=== PATIENT | female | born 1990 | race Two or more races ===

== ENCOUNTER → 2019-07-22 | Outpatient (CLI) | payer SELFPAY ==
--- NOTE | 2019-07-22 16:32 | RADIOLOGY REPORT (SQ) ---
EXAM DESCRIPTION: U/S OB 14+ TRNABD 1GES W/O DOP COMPLETED DATE/TIME: 07/22/2019 3:37 pm REASON FOR STUDY: Z34.83 ENCOUNTER FOR SUPRVSN OF NORMAL , THIRD TRIMESTER Z34.83 ENCOUNTE R FOR SUPRVSN OF NORMAL , THIRD TRIM COMPARISON: None. TECHNIQUE: Static and Dynamic grayscale imaging performed of gravid uterus using transabdominal appr oach. Additional selected color Doppler and spectral images recorded. All stored on PACS. LIMITATIONS: None. FINDINGS: FETUSES SEEN:1 EGA: 37 weeks 1 day Calculated using BPD,FL,HC,AC documented on images. No discrepancy with clinical dates. RAHUL: 08/11/2019 EFW: 3081 grams +/-456 g grams PERCENTILE: 42% DEJAN: 12.0 cm PLACENTA: Anterior. PRESENTATION: Cephalic. ANATOMY: HEART RATE: 136 beats per minute. FOUR CHAMBER HEART: Not visualized. THREE VESSEL CORD: Yes. CORD INSERTION: Not visualized. KIDNEYS AND BLADDER: Visualized. Appear normal. STOMACH: Visualized. Appears normal. SPINE: Not visualized. BRAIN AND LATERAL VENTRICLES: Lateral ventricles, cerebellum and cisterna magna are not seen. Normal brain as visualized. OTHER: No other significant finding. MATERNAL ADNEXA: Maternal ovaries not visualized. CERVICAL LENGTH: Not visualized. OTHER: Limited anatomy due to advanced gestational age. IMPRESSION: LIVING INTRAUTERINE . ESTIMATED GESTATIONAL AGE: 37 weeks 1 day NO VISUALIZED ANOMALIES. Trimester of : Third trimester - 28 weeks to delivery. TECHNICAL DOCUMENTATION: JOB ID: [id number] [employer]- All Rights Reserved Reading location - IP/workstation name: [email or web address]
== END ==
LOC: RAD 14:39
PROVIDERS: ATTEND Midwife
DX: Z34.83 Encounter for supervision of other normal pregnancy, third trimester (principal)
CPT/HCPCS: 76805

== ENCOUNTER → 2019-07-31 | Outpatient (CLI) | payer SELFPAY ==
--- NOTE | 2019-08-01 11:06 | RADIOLOGY REPORT (SQ) ---
EXAM DESCRIPTION: U/S OB 14+ TRNABD 1GES W/O DOP COMPLETED DATE/TIME: 07/31/2019 5:18 pm REASON FOR STUDY: Z34.83 ENCOUNTER FOR SUPRVSN OF NORMAL , THIRD TRIMESTER Z34.83 ENCOUNTE R FOR SUPRVSN OF NORMAL , THIRD TRIM COMPARISON: None. TECHNIQUE: Static and Dynamic grayscale imaging performed of gravid uterus using transabdominal appr oach. Additional selected color Doppler and spectral images recorded. All stored on PACS. LIMITATIONS: None. FINDINGS: FETUSES SEEN:1 EGA: 37 weeks 4 days Calculated using BPD,FL,HC,AC documented on images. No discrepancy with clinica l dates. RAHUL: 08/17/2019 EFW: 3239+/- 479 grams PERCENTILE: 40th LV P: Not measured. PLACENTA: Anterior GRADE: I PRESENTATION: Cephalic. ANATOMY: HEART RATE: 157 beats per minute. FOUR CHAMBER HEART: Verified. THREE VESSEL CORD: Yes. CORD INSERTION: Seen. KIDNEYS AND BLADDER: Previously seen. STOMACH: Previously seen. SPINE: Normal as visualized. BRAIN AND LATERAL VENTRICLES: Visualized. Appear normal. Cerebellum and cisterna magna are not seen. OTHER: No other significant finding. MATERNAL ADNEXA: Maternal ovaries not visualized. CERVICAL LENGTH: Not measured. Closed. OTHER: No other significant finding. IMPRESSION: Living intrauterine gestation 37 weeks 4 days. anatomy was examined that was not able be seen on the prior study. No significant anomalies. Trimester of : Third trimester - 28 weeks to delivery. TECHNICAL DOCUMENTATION: JOB ID: [id number] [employer]- All Rights Reserved Reading location - IP/workstation name: [email or web address]
== END ==
LOC: RAD 16:27
PROVIDERS: ATTEND Midwife
DX: Z34.83 Encounter for supervision of other normal pregnancy, third trimester (principal)
CPT/HCPCS: 76805

== ENCOUNTER 2019-08-06 06:26 | Inpatient (IN) | payer MEDICAID ==
--- NOTE | 2019-08-06 08:01 | Admission Physical ---
Datetime Report Generated by CPN: 08/06/2019 08:00 CURRENT ADMISSION Chief Complaint: Suspected Ruptured Membranes Indication for Induction: PROM Admit Impression : Ruptured Membranes Admit Plan: Admit to Unit ALLERGIES Medication Allergies: No Medication Allergies: No Known Allergies (08/06/2019) Latex: No Latex Allergies OBSTETRICAL HISTORY EDC: 08/07/2019 00:00 : 3 Para: 2 Livin Cesareans: 1 VBACs: 1 Gestational Diabetes: No Rh Sensitization: No Incompetent Cervix: No TOMASZ: No Infertility: No ART Treatment: No Uterine Anomaly: No IUGR: No Hx Previous C/S: No Macrosomia: No Hx Loss/Stillborn: No PIH: No Hx : No Placenta Previa/Abruption: No Depression/PP Depression: No PTL/PROM: No Post Hemorrhage: No Current Procedures: Ultrasound; NST Obstetrical History Comments: G1 - Twins July 2009 C/S - July 2014 G3 - Current SEE RECORDS Alcohol: No Marijuana : No Cocaine: No Other Illicit Drugs: No Cigarettes: Never Smoker. [id number] MEDICAL HISTORY Diabetes: No Blood Transfusion: No Pulmonary Disease (Asthma, TB): No Breast Disease: No Hypertension: No Channel Layer Surgery: No Heart Disease: No Hosp/Surgery: No Autoimmune Disorder: No Anesthetic Complications: No Kidney Disease: No Abnormal Pap Smear: No Neuro/Epilepsy: No Psychiatric Disorders: No Other Medical Diseases: No Hepatitis/Liver Disease: No Significant Family History: No Varicosities/Phlebitis: No Trauma/Violence : No Thyroid Dysfunction: No INFECTIOUS HISTORY Gonorrhea: No Genital Herpes: No Chlamydia: No Tuberculosis: No Syphilis: No Hepatitis: No HIV/AIDS Exposure: No Rash or Viral Illness: No HPV: No PHYSICAL EXAM General: Normal HEENT: Normal Neurologic: Normal Thyroid: Normal Heart: Normal Lungs: Normal Breast: Normal Back: Normal Abdomen: Normal Genitourinary Exam: Normal Extremities: Normal DTRs: Normal Pelvic Type: Adequate Vital Signs: Reviewed VAGINAL EXAM Dilatation: 4 Effacement: 80 Station: -1 Contraction Comments: Q 5-6 min MEMBRANES Pooling: Positive Membranes: Ruptured Amniotic Fluid Color: Clear FETUS A EGA: 39.6 Monitoring: External US FHR- Baseline: 145 Variability: Moderate 6-25bpm Accelerations: 15X15 Decelerations: None FHR Category: Category I Estimated Weight (gm): 3239 Presentation: Vertex Admit Comment: at 38.3 wks EGA presented for SROM at 0600 and found to indeed be ruptured on arrival. No bleeding. Has ctx Q 5-6 min. Good FM. Has hx of one CS for Twins in G1 and one . SHe desires Repeat -GBS negative. Healthy otherwise. -Admit to LDR -VSS, continue Q 1 hr -NPO and IVFs -CEFM and toco -US at 37.4 wks EGA showed EFW of 3,239 gms -Desires - consent done. Anesthesia and OR will be notified -Labs pending Discussed with Dr. Valdez PLANS FOR LABOR AND DELIVERY Labor and Delivery: None Pain Management: Natural; Epidural Feeding Preference: Both Benefit of Breast Feed Discussed: Yes Circumcision: N/A INFORMED CONSENT Informed Consent Obtained: Vaginal After ; Risks, Benefits and Alternatives Discussed Signature: with User ID: Brandon : with User ID: Brandon
[2019-08-06] MEDS ORDERED: NORMAL SALINE 250 ML IV PRN (08:13)
[2019-08-06 08:30] LABS: APPEARANCE,URINE SLIGHTLY-CLOUDY; BILIRUBIN,URINE NEGATIVE (NEGATIVE); COLOR,URINE YELLOW; GLUCOSE, URINE NEGATIVE (NEGATIVE); KETONES,URINE NEGATIVE (NEGATIVE); LEUKOCYTE ESTERASE,URINE NEGATIVE (NEGATIVE); NITRITE,URINE NEGATIVE (NEGATIVE); PROTEIN,URINE NEGATIVE (NEGATIVE); UROBILINOGEN,URINE NEGATIVE mg/dL (<2.0)
[2019-08-06 08:50] LABS: URINE AMPHETAMINES SCREEN NEGATIVE; URINE BARBITURATES SCREEN NEGATIVE; URINE BENZODIAZEPINES SCREEN NEGATIVE; URINE COCAINE SCREEN NEGATIVE; URINE MARIJUANA (THC) SCREEN NEGATIVE; URINE METHADONE SCREEN NEGATIVE; URINE PHENCYCLIDINE SCREEN NEGATIVE
[2019-08-06 09:34] LABS: ABSOLUTE EOSINOPHILS # (AUTO) 0.1 10^3/uL (0.0-0.6); ABSOLUTE LYMPHOCYTES (AUTO) 2.8 10^3/uL (0.5-4.7); ABSOLUTE MONOCYTES (AUTO) 0.8 10^3/uL (0.1-1.4); ABSOLUTE NEUT (AUTO) 10.1 10^3/uL (1.7-8.2); BASOPHILS % (AUTO) 0.2 % (0-2); HEMATOCRIT 35.7 % (36.0-47.0); HEMOGLOBIN 11.9 g/dL (12.0-15.5); LYMPHOCYTES % (AUTO) 20.5 % (13-45); MEAN CORPUSCULAR HEMOGLOBIN 28.5 pg (27.0-33.4); MEAN CORPUSCULAR HGB CONC 33.3 g/dL (32.0-36.0); MEAN CORPUSCULAR VOLUME 86 fl (80-97); MONOCYTES % (AUTO) 5.5 % (3-13); PLATELET COUNT 288 10^3/uL (150-450); RED BLOOD COUNT 4.17 10^6/uL (3.72-5.28); RED CELL DISTRIBUTION WIDTH 15.8 % (11.5-14.0); SEGMENTED NEUTROPHILS % (AUTO) 72.8 % (42-78); TOTAL CELLS COUNTED % (AUTO) 100 %; WHITE BLOOD COUNT 13.9 10^3/uL (4.0-10.5)
[2019-08-06] MEDS ORDERED: RINGERS SOLUTION,LACTATED 1,000 ML IV PRN (10:16)
[2019-08-06] MEDS ORDERED: OXYTOCIN/NORMAL SALINE 20 UNIT/1,000 ML RTUINJ IV PRN ×2 (10:46→17:45)
[2019-08-06] MEDS ORDERED: LIDOCAINE 1% INJ-PF (10 MG/ML) 30 ML SDV ONE (11:08)
[2019-08-06] MEDS ORDERED: OXYTOCIN 10 UNIT/ML VIAL ONE (11:08)
[2019-08-06] MEDS ORDERED: MISOPROSTOL 0.2 MG TABLET ONE (11:08)
[2019-08-06] MEDS ORDERED: OXYTOCIN/NORMAL SALINE 20 UNIT/1,000 ML RTUINJ ONE (11:09)
[2019-08-06] MEDS ORDERED: EPHEDRINE SULFATE INJ 50 MG/1 ML AMPULE ONE (14:54)
[2019-08-06] MEDS ORDERED: FENTANYL/BUPIVACAINE/NS/PF 300 MCG/150 ML RTUINJ EPI ONE (14:55)
[2019-08-06] MEDS ORDERED: BUPIVACAINE HCL 0.25 % INJ/PF (2.5 MG/1 ML) 30 ML VIAL ONE (14:55)
[2019-08-06] MEDS ORDERED: ACETAMINOPHEN WITH CODEINE #3 TABLET PO PRN ×2 (17:45)
[2019-08-06] MEDS ORDERED: DIBUCAINE 1% OINTMENT 56 GM TP PRN (17:45)
[2019-08-06] MEDS ORDERED: BENZOCAINE/MENTHOL AEROSOL SPRAY 56 ML TOP PRN (17:45)
[2019-08-06] MEDS ORDERED: ZOLPIDEM TARTRATE 5 MG TABLET PO PRN (17:45)
[2019-08-06] MEDS ORDERED: DIPH/PERTUSS(ACELL)/TETANUS VAC/PF 0.5 ML SYR (>=10YO) IM PRN (17:45)
[2019-08-06] MEDS ORDERED: ACETAMINOPHEN WITH CODEINE #3 TABLET ONE (17:55)
[2019-08-06 19:52] LABS: CHLAM PCR NOT DETECTED (NOT DETECT)
--- NOTE | 2019-08-06 20:40 | Delivery Summary ---
Del Sum A-C Datetime Report Generated by CPN: 08/06/2019 20:40 DELIVERY PERSONNEL DELIVERY PERSONNEL: [id number] Delivery Doctor:: Farida Shabazz MD Labor and Delivery Nurse:: Chanel Martin RNpulmonary function technician Nurse:: TONEY Garcia Nursery Nurse:: Adeline Brock RN Additional Personnel: : Mona Aguirre RNC MATERNAL INFORMATION Delivery Anesthesia: Epidural Medications After Delivery: Pitocin Bolus-Please Comment Delivery QBL: 116 Delivery QBL Comment: 100 Provider Comments: of a viable female at 1726 w/ an OA w/ nuchal cord x 1 presentation; APGARS 7, 9; no lacs LABOR SUMMARY EDC: 08/07/2019 00:00 No. Babies in Womb: 1 Attempted: Yes Labor Anesthesia: Epidural LABOR INFORMATION Onset of Labor: 08/06/2019 08:00 Complete Dilatation: 08/06/2019 17:07 Oxytocin: Augmentation Group B Beta Strep: Negative Steroids Given: None Reason Steroids Not Administered: Not Applicable MEMBRANES Membranes Rupture Method: Spontaneous Rupture of Membranes: 08/06/2019 05:00 Length of Rupture (hr): 12.43 Amniotic Fluid Color: Clear Amniotic Fluid Amount: Moderate Amniotic Fluid Odor: Normal STAGES OF LABOR Stage 1 hr: 9 Stage 1 min: 7 Stage 2 hr: 0 Stage 2 min: 19 Stage 3 hr: 0 Stage 3 min: 8 Total Time in Labor hr: 9 Total Time in Labor min: 34 VAGINAL DELIVERY Episiotomy: None Laceration #1: None Laceration Extension #1: N/A Laceration Repair: Not Applicable Sponge Count Correct: Yes Sharps Count Correct: Yes CSECTION DELIVERY Primary Indication: N/A Secondary Indication: N/A BABY A INFORMATION Infant Delivery Date/Time: 08/06/2019 17:26 Method of Delivery: Vaginal Born in Route : No : Successful Forceps: N/A Vacuum Extraction: N/A Shoulder Dystocia : No PRESENTATION/POSITION BABY A Presentation: Cephalic Cephalic Presentation: Vertex Vertex Position: Occipital Anterior Breech Presentation: N/A PLACENTA INFORMATION BABY A Placenta Delivery Time : 08/06/2019 17:34 Placenta Method of Delivery: Spontaneous Placenta Status: Delivered SCORES BABY A Heart Rate 1 min: >100 bpm Resp Effort 1 min: Good Cry Reflex Irritability 1 min: Cough or Sneeze or Pulls Away Muscle Tone 1 min: Some Flexion of Extremities Color 1 min: Blue/Pale Resuscitation Effort 1 min: Tactile Stimulation SCORE 1 MIN: 7 Heart Rate 5 min: >100 bpm Resp Effort 5 min: Good Cry Reflex Irritability 5 min: Cough or Sneeze or Pulls Away Muscle Tone 5 min: Active Motion Color 5 min: Body [place], Extremities Blue SCORE 5 MIN: 9 INFORMATION BABY A Gestational Age at Delivery: 39.6 Gestational Status: Full Term- 39- 40.6 Weeks Infant Outcome : Liveborn Condition : Stable Infant Sex: Female IDENTIFICATION BABY A Infant Verification Date/Time: 08/06/2019 17:44 ID Band Number: [id number] Mother's Name Verified: Yes RN Verifying Infant: Vincenzo RN Additional Verifying Personnel: [email or web address],RN WEIGHT/LENGTH BABY A Infant Birthweight (gm): 3482 Infant Weight (lb): 7 Weight (oz): 11 Infant Length (in): 19.25 Infant Length (cm): 48.90 CORD INFORMATION BABY A No. Cord Vessels: 3 Nuchal Cord : Around Neck x1, Loose Nuchal Cord- Other: wrapped around body and foot Cord Blood Taken: Yes-For Storage (Mom's Blood type +) ASSESSMENT BABY A Infant Complications: Multiple Variable Decels Physical Findings at Delivery: Within Normal Limits Respirations: Appears Normal Skin to Skin: Yes Skin to Skin Time (min): 45 Retail Warehouse Supervisor/ALS Called : No Infant Care By: Aleisha Brock RN Transferred To: Remains with Mother SIGNATURES Signature: with User ID: [email or web address]
[2019-08-06] MEDS: DOCUSATE SODIUM 100 MG CAPSULE PO SCH (21:21)
[2019-08-06] MEDS: FERROUS SULFATE 325 MG TABLET PO SCH (21:21)
[2019-08-06] MEDS: IBUPROFEN 800 MG TABLET PO SCH (22:38)
[2019-08-07] MEDS: IBUPROFEN 800 MG TABLET PO SCH ×3 (05:49→22:47)
[2019-08-07 06:42] LABS: HEMATOCRIT 29.2 % (36.0-47.0); MEAN CORPUSCULAR HEMOGLOBIN 28.6 pg (27.0-33.4); MEAN CORPUSCULAR HGB CONC 33.6 g/dL (32.0-36.0); MEAN CORPUSCULAR VOLUME 85 fl (80-97); PLATELET COUNT 262 10^3/uL (150-450); RED BLOOD COUNT 3.43 10^6/uL (3.72-5.28); RED CELL DISTRIBUTION WIDTH 16.1 % (11.5-14.0); WHITE BLOOD COUNT 16.6 10^3/uL (4.0-10.5)
[2019-08-07 06:57] LABS: HEMOGLOBIN 9.8 g/dL (12.0-15.5)
[2019-08-07] MEDS: PRENATAL VITAMIN W DHA CAPSULE PO SCH (09:29)
[2019-08-07] MEDS: DOCUSATE SODIUM 100 MG CAPSULE PO SCH ×2 (09:31→17:54)
[2019-08-07] MEDS: SENNOSIDES/DOCUSATE 8.6-50 MG 1 EACH TABLET PO SCH (09:31)
[2019-08-07] MEDS: FERROUS SULFATE 325 MG TABLET PO SCH ×2 (09:31→17:54)
--- NOTE | 2019-08-07 09:50 | PDOC PROGRESS REPORT ---
Subjective-OB Progress Note for:: 08/07/19 Physical Exam (OB) Vital Signs: Temp Pulse Resp BP Pulse Ox 98.3 F 83 16 95/66 L 99 08/07/19 08:31 08/07/19 08:31 08/07/19 08:31 08/07/19 08:31 08/07/19 08:31 Intake & Output 08/06/19 08/07/19 08/08/19 06:59 06:59 06:59 Intake Total 200 Balance 200 Weight 67.5 kg - General General Appearance: Appears well - PIH/Pre-Eclampsia DTR's: 1 + Clonus: Negative Headache: Absent Epigastric Pain: No Visual Changes: No - Lochia Lochia Color: Rubra/Red - Abdomen Description: Soft, Round Hernia Present: No Flatus Presence: Present Fundal Description: Firm, Midline Fundal Height: u/u - u/2 - Respiratory Breath sounds: Clear - Extremities Calf: Normal Objective-Diagnostic Laboratory: 08/07/19 06:26 08/06/19 08/07/19 08:45 06:26 WBC 16.6 H RBC 3.43 L Hgb 9.8 L D Hct 29.2 L MCV 85 MCH 28.6 MCHC 33.6 RDW 16.1 H Plt Count 262 Blood Type O POSITIVE Antibody Screen NEGATIVE Assessment and Plan(PN) - Assessment and Plan (1) (normal spontaneous vaginal delivery) Is this a current diagnosis for this admission?: Yes - Time Spent with Patient Time with patient: Less than 15 minutes - Disposition Anticipated Discharge: Home Within: within 24 hours
[2019-08-08] MEDS: IBUPROFEN 800 MG TABLET PO SCH ×2 (05:06→14:22)
[2019-08-08] MEDS ORDERED: INFLUENZA QUAD (6MOS+) 2019-20 VAC 0.5 ML SYR IM ONE (08:00)
[2019-08-08] MEDS: PRENATAL VITAMIN W DHA CAPSULE PO SCH (10:02)
[2019-08-08] MEDS: DOCUSATE SODIUM 100 MG CAPSULE PO SCH (10:04)
[2019-08-08] MEDS: FERROUS SULFATE 325 MG TABLET PO SCH (10:05)
[2019-08-08] MEDS: SENNOSIDES/DOCUSATE 8.6-50 MG 1 EACH TABLET PO SCH (10:05)
[2019-08-08 13:02] VITALS: BP 95/66
--- NOTE | 2019-08-08 13:23 | PDOC DISCHARGE SUMMARY ---
Impression - Admit/DC Date/PCP Admission Date/Primary Care Provider: 08/06/19 07:53 CATALINA PALMA CNM Discharge Date: 08/08/19 - Discharge Diagnosis (1) Vaginal after () Is this a current diagnosis for this admission?: Yes - Additional Information Discharge Diet: Regular Discharge Activity: Balance Activity w/Rest, Pelvic Rest Referrals: [facility] [Provider Group] Prescriptions: Ibuprofen [Motrin 800 mg Tablet] 800 mg PO Q8HP PRN #60 tablet PRN Reason: Acetaminophen with Codeine [Tylenol #3 Tablet] 1 each PO Q4HP PRN #20 tablet PRN Reason: Home Medications: Vit,Calc76/Iron/Folic [Prenatabs Rx Tablet] 1 each PO DAILY 08/06/19 Acetaminophen with Codeine [Tylenol #3 Tablet] 1 each PO Q4HP PRN #20 tablet 08/08/19 Ibuprofen [Motrin 800 mg Tablet] 800 mg PO Q8HP PRN #60 tablet 08/08/19 HPI Gestational Age: 39 Reason(s) for Admission: Onset of Labor Procedures: NST Intrapartum Procedure(s): Spontaneous Vaginal Delivery Hospital Course Hospital Course: admitted in active labor, hx c/s, delivered vaginally without complications Results Laboratory Results: WBC 16.6 10^3/uL (4.0-10.5) H 08/07/19 06:26 RBC 3.43 10^6/uL (3.72-5.28) L 08/07/19 06:26 Hgb 9.8 g/dL (12.0-15.5) L D 08/07/19 06:26 Hct 29.2 % (36.0-47.0) L 08/07/19 06:26 MCV 85 fl (80-97) 08/07/19 06:26 MCH 28.6 pg (27.0-33.4) 08/07/19 06:26 MCHC 33.6 g/dL (32.0-36.0) 08/07/19 06:26 RDW 16.1 % (11.5-14.0) H 08/07/19 06:26 Plt Count 262 10^3/uL (150-450) 08/07/19 06:26 Lymph % (Auto) 20.5 % (13-45) 08/06/19 08:45 Jessamine % (Auto) 5.5 % (3-13) 08/06/19 08:45 Eos % (Auto) 1.0 % (0-6) 08/06/19 08:45 Baso % (Auto) 0.2 % (0-2) 08/06/19 08:45 Absolute Neuts (auto) 10.1 10^3/uL (1.7-8.2) H 08/06/19 08:45 Absolute Lymphs (auto) 2.8 10^3/uL (0.5-4.7) 08/06/19 08:45 Absolute Monos (auto) 0.8 10^3/uL (0.1-1.4) 08/06/19 08:45 Absolute Eos (auto) 0.1 10^3/uL (0.0-0.6) 08/06/19 08:45 Absolute Basos (auto) 0.0 10^3/uL (0.0-0.2) 08/06/19 08:45 Seg Neutrophils % 72.8 % (42-78) 08/06/19 08:45 Urine Color YELLOW 08/06/19 06:37 Urine Appearance SLIGHTLY-CLOUDY 08/06/19 06:37 Urine pH 7.0 (5.0-9.0) 08/06/19 06:37 Ur Specific Clarissa 1.010 08/06/19 06:37 Urine Protein NEGATIVE mg/dL (NEGATIVE) 08/06/19 06:37 Urine Glucose (UA) NEGATIVE mg/dL (NEGATIVE) 08/06/19 06:37 Urine Ketones NEGATIVE mg/dL (NEGATIVE) 08/06/19 06:37 Urine Blood NEGATIVE (NEGATIVE) 08/06/19 06:37 Urine Nitrite NEGATIVE (NEGATIVE) 08/06/19 06:37 Urine Bilirubin NEGATIVE (NEGATIVE) 08/06/19 06:37 Urine Urobilinogen NEGATIVE mg/dL (<2.0) 08/06/19 06:37 Ur Leukocyte Esterase NEGATIVE (NEGATIVE) 08/06/19 06:37 Urine Ascorbic Acid NEGATIVE (NEGATIVE) 08/06/19 06:37 Membranes Rupture POSITIVE (NEGATIVE) H 08/06/19 07:12 Urine Opiates Screen NEGATIVE 08/06/19 06:37 Urine Methadone Screen NEGATIVE 08/06/19 06:37 Ur Barbiturates Screen NEGATIVE 08/06/19 06:37 Ur Phencyclidine Scrn NEGATIVE 08/06/19 06:37 Ur Amphetamines Screen NEGATIVE 08/06/19 06:37 U Benzodiazepines Scrn NEGATIVE 08/06/19 06:37 Urine Cocaine Screen NEGATIVE 08/06/19 06:37 U Marijuana (THC) Screen NEGATIVE 08/06/19 06:37 RPR NONREACTIVE (NONREACTIVE) 08/06/19 08:45 Chlamydia DNA (PCR) NOT DETECTED (NOT DETECT) 08/06/19 06:37 N.gonorrhoeae DNA (PCR) NOT DETECTED (NOT DETECT) 08/06/19 06:37 Blood Type O POSITIVE 08/06/19 08:45 Blood Type Confirm O POSITIVE 08/06/19 09:00 Antibody Screen NEGATIVE 08/06/19 08:45 Crossmatch See Detail 08/06/19 08:45 Plan Plan of Treatment: to [facility] for post check in 4 weeks Time Spent: Less than 30 Minutes
== END 2019-08-08 15:20 | disposition home or self-care (01) | DRG 807 ==
LOC: LC 06:26 → LR 07:53 → 2S 21:04
PROVIDERS: ADMIT Obstetrics & Gynecology; ATTEND Obstetrics & Gynecology
PROC: 10E0XZZ Delivery of Products of Conception, External Approach (ICD-10-PCS; principal; 2019-08-06)
PROC: 3E0234Z Introduction of Serum, Toxoid and Vaccine into Muscle, Percutaneous Approach (ICD-10-PCS; 2019-08-08)
DX: O34.211 Maternal care for low transverse scar from previous cesarean delivery (principal); Z37.0 Single live birth; N85.8 Other specified noninflammatory disorders of uterus; O69.81X0 Labor and delivery complicated by cord around neck, without compression, not applicable or unspecified; O76 Abnormality in fetal heart rate and rhythm complicating labor and delivery; Z3A.39 39 weeks gestation of pregnancy; Z23 Encounter for immunization
CPT/HCPCS: 36415; 80307; 81005; 84112; 85025; 85027; 86592; 86850; 86900; 86901; 86920; 87491; 87591; 90686; J2590; J3010; J3490

== ENCOUNTER 2019-08-17 17:39 | Emergency (ER) | payer MEDICAID ==
--- NOTE | 2019-08-17 17:57 | ER Document Report ---
ED Medical Screen (RME) - General Chief Complaint: Vaginal Bleeding Stated Complaint: VAGINAL BLEEDING Time Seen by Provider: 08/17/19 17:52 Primary Care Provider: CATALINA PALMA CNM [Primary Care Provider] - Follow up as needed Mode of Arrival: Ambulatory Information source: Patient Notes: 28-year-old female presented to ED for vaginal bleeding. She is 10 days post delivery. She did have a normal delivery 10 days ago. She states she had not been bleeding very much and then today she had a large blood clot. She states she has not been to the ORIENTAL [employer] [facility]RETCH[facility] since her delivery. Patient is alert oriented respirations regular and unlabored. I have greeted and performed a rapid initial assessment of this patient. A comprehensive ED assessment and evaluation of the patient, analysis of test results and completion of medical decision making process will be conducted by an additional ED providers. TRAVEL OUTSIDE OF THE [place] IN LAST 30 DAYS: No - Related Data Allergies/Adverse Reactions: No Known Allergies Allergy (Unverified 08/06/19 07:02) Physical Exam - Vital signs Vitals: Temp Pulse Resp BP Pulse Ox 98.5 F 91 18 126/83 H 99 08/17/19 17:44 08/17/19 17:44 08/17/19 17:44 08/17/19 17:44 08/17/19 17:44 Course - Vital Signs Vital signs: Temp Pulse Resp BP Pulse Ox 98.5 F 91 18 126/83 H 99 08/17/19 17:44 08/17/19 17:44 08/17/19 17:44 08/17/19 17:44 08/17/19 17:44 Doctor's Discharge - Discharge Referrals: CATALINA PALMA CNM [Primary Care Provider] - Follow up as needed
[2019-08-17 18:49] LABS: ABSOLUTE BASOPHILS # (AUTO) 0.1 10^3/uL (0.0-0.2); ABSOLUTE EOSINOPHILS # (AUTO) 0.3 10^3/uL (0.0-0.6); ABSOLUTE LYMPHOCYTES (AUTO) 1.9 10^3/uL (0.5-4.7); ABSOLUTE MONOCYTES (AUTO) 0.5 10^3/uL (0.1-1.4); ABSOLUTE NEUT (AUTO) 8.9 10^3/uL (1.7-8.2); BASOPHILS % (AUTO) 0.5 % (0-2); EOSINOPHILS % (AUTO) 2.7 % (0-6); HEMATOCRIT 39.9 % (36.0-47.0); HEMOGLOBIN 13.1 g/dL (12.0-15.5); LYMPHOCYTES % (AUTO) 16.2 % (13-45); MEAN CORPUSCULAR HGB CONC 32.8 g/dL (32.0-36.0); MEAN CORPUSCULAR VOLUME 85 fl (80-97); MONOCYTES % (AUTO) 4.4 % (3-13); PLATELET COUNT 471 10^3/uL (150-450); RED BLOOD COUNT 4.68 10^6/uL (3.72-5.28); RED CELL DISTRIBUTION WIDTH 16.3 % (11.5-14.0); SEGMENTED NEUTROPHILS % (AUTO) 76.2 % (42-78); TOTAL CELLS COUNTED % (AUTO) 100 %; WHITE BLOOD COUNT 11.6 10^3/uL (4.0-10.5)
[2019-08-17 19:15] LABS: ALBUMIN 4.3 g/dL (3.5-5.0); ALKALINE PHOSPHATASE 108 U/L (38-126); ANION GAP 13 (5-19); ASPARTATE AMINO TRANSFERASE 22 U/L (14-36); BILIRUBIN,DIRECT 0.1 mg/dL (0.0-0.4); BILIRUBIN,TOTAL 0.3 mg/dL (0.2-1.3); BLOOD UREA NITROGEN 15 mg/dL (7-20); CALCIUM 9.8 mg/dL (8.4-10.2); CARBON DIOXIDE 23 mmol/L (22-30); CHLORIDE 106 mmol/L (98-107); GLUCOSE 127 mg/dL (75-110); POTASSIUM 4.4 mmol/L (3.6-5.0); TOTAL PROTEIN 7.5 g/dL (6.3-8.2)
[2019-08-17 19:50] LABS: INTERNATIONAL RATION (INR) 1.05; PARTIAL THROMBOPLASTIN TIME 29.3 SEC (23.5-35.8); PROTHROMBIN TIME 13.7 SEC (11.4-15.4)
--- NOTE | 2019-08-17 21:03 | ER Document Report ---
ED General - General Chief Complaint: Vaginal Bleeding Stated Complaint: VAGINAL BLEEDING Time Seen by Provider: 08/17/19 17:52 Primary Care Provider: SEUN SWANN MD [ACTIVE STAFF] - Follow up tomorrow CATALINA SWANN CNM [NO LOCAL MD] - Follow up as needed Mode of Arrival: Ambulatory TRAVEL OUTSIDE OF THE [place] IN LAST 30 DAYS: No - HPI Notes: Patient is a 28-year-old female G2, P2 who had a recent vaginal full-term 11 days ago presents complaining of passing a blood clot vaginally today. Patient states that the bleeding has since subsided. She has not had any pain or discomfort associated. Denies drug allergies. She has been eating and drinking without difficulty. She is urinating normally and having normal bowel movements. Denies drug allergies. No other concerns or complaints. Denies any headache, fever, neck pain, URI, sore throat, chest pain, palpitations, syncope, cough, shortness of breath, wheeze, dyspnea, abdominal pain, nausea/vomiting/diarrhea, urinary retention, dysuria, hematuria, or rash. - Related Data Allergies/Adverse Reactions: No Known Allergies Allergy (Unverified 08/06/19 07:02) Past Medical History - General Information source: Patient - Social History Smoking Status: Never Smoker Family History: Reviewed & Not Pertinent Patient has suicidal ideation: No Patient has homicidal ideation: No Review of Systems - Review of Systems -: Yes All other systems reviewed and negative Physical Exam - Vital signs Vitals: Temp Pulse Resp BP Pulse Ox 98.5 F 91 18 126/83 H 99 08/17/19 17:44 08/17/19 17:44 08/17/19 17:44 08/17/19 17:44 08/17/19 17:44 - Notes Notes: PHYSICAL EXAMINATION: GENERAL: Well-appearing, well-nourished and in no acute distress. LUNGS: Breath sounds clear to auscultation bilaterally and equal. No wheezes rales or rhonchi. HEART: Regular rate and rhythm without murmurs, rubs, gallops. ABDOMEN: Soft, nontender, nondistended abdomen. No guarding, no rebound. Normal bowel sounds present. No CVA tenderness bilaterally. Musculoskeletal: FROM to passive/active. Strength 5+/5. Extremities: No cyanosis, clubbing, or edema b/l. Peripheral pulses 2+. Capillary refill less than 3 seconds. NEUROLOGICAL: Cranial nerves grossly intact. Normal speech, normal gait. PSYCH: Normal mood, normal affect. SKIN: Warm, Dry, normal turgor, no rashes or lesions noted. Course - Re-evaluation Re-evalutation: 08/17/19 Patient is an afebrile, well-hydrated, 28-year-old female who presents to the ED with vaginal bleeding s/p vaginal 11 days ago. The bleeding has since improved and was mainly 1 clot and spotting. Vitals are acceptable without any significant tachycardia, tachypnea, or hypoxia. PE is otherwise unremarkable. Pt is hemodynamically stable otherwise. Abd is soft and non-tender. Declined pelvic exam. Patient is nontoxic-appearing is tolerating p.o. without any difficulties. TVUS pending, but pt does not want to stay for the result and we can call them on their cell phone. She is aware that if any positive findings they need to return to the ED. Risk/benefit understood of leaving prior to results including worsening harm, , etc. I did call and speak with Dr. Swann (OBGYN) who can see her in the office tomorrow. No other labs or imaging warranted at this time based on H&P. Low suspicion/risk for acute appendicitis, bowel obstruction, acute cholecystitis, acute cholangitis, perforated diverticulitis, incarcerated hernia, pancreatitis, perforated ulcer, peritonitis, sepsis, pelvic inflammatory disease, ectopic , tubo- ovarian abscess, ovarian torsion, or other systemic emergent condition at this time. Patient is aware that her condition can change from initial presentation and she needs to monitor symptoms closely and seek medical attention if any acute changes. Conservative measures otherwise for symptoms. Recheck with your PCM/OBGYN as reviewed. Return to the ED with any worsening/concerning symptoms otherwise as reviewed in discharge. Patient is in agreement. - Vital Signs Vital signs: Temp Pulse Resp BP Pulse Ox 98.0 F 90 16 105/70 99 08/17/19 22:27 08/17/19 22:27 08/17/19 22:27 08/17/19 22:27 08/17/19 22:27 - Laboratory Result Diagrams: 08/17/19 18:29 08/17/19 18:29 Laboratory results interpreted by me: 08/17/19 08/17/19 08/17/19 18:29 18:29 20:01 WBC 11.6 H RDW 16.3 H Plt Count 471 H Absolute Neuts (auto) 8.9 H Glucose 127 H Urine Blood LARGE H Leukocyte Esterase Rfl TRACE H Discharge - Discharge Clinical Impression: Vaginal bleeding Condition: Stable Disposition: HOME, SELF-CARE Additional Instructions: You will be called by 12am tonight if there is anything wrong with your US report. If any significant findings, you may need to return for further management. You are leaving at your own risk otherwise as we would like you to stay for the result prior to discharge and we currently have an incomplete work up. Maintain fluid intake Proper hygienic technique Keep the skin clean Tylenol as needed F/u with your PCM in 3-5 days for a recheck Call OBGYN tomorrow and f/u in the next couple days with them* Return to the ED with any development of HOGAN/fever, trouble with vision, eye redness, worsening pain, urethral discharge, urinary retention, blood in the urine, flank pain, abdominal pain, n/v, Chest Pain, shortness of breath, joint pains, trouble breathing, or any other worsening/concerning symptoms as needed otherwise. Prescriptions: Methylergonovine Maleate [Methergine 0.2 Mg Tablet] 0.2 mg PO TID #9 tablet Forms: Elevated Blood Pressure Referrals: CATALINA SWANN CNM [NO LOCAL MD] - Follow up as needed SEUN SWANN MD [ACTIVE STAFF] - Follow up tomorrow
[2019-08-17 21:14] LABS: APPEARANCE,URINE SLIGHTLY-CLOUDY; BILIRUBIN,URINE NEGATIVE (NEGATIVE); COLOR,URINE YELLOW; GLUCOSE, URINE NEGATIVE (NEGATIVE); KETONES,URINE NEGATIVE (NEGATIVE); PROTEIN,URINE NEGATIVE (NEGATIVE); URINE SPECIFIC GRAVITY 1.025; UROBILINOGEN,URINE NEGATIVE mg/dL (<2.0)
[2019-08-17 22:28] VITALS: BP 105/70
--- NOTE | 2019-08-17 22:37 | RADIOLOGY REPORT (SQ) ---
EXAM DESCRIPTION: RadLex: US PELVIS TRANSVAGINAL CLINICAL HISTORY: 28 years Female post x11d, bleeding TECHNIQUE: Endovaginal pelvic ultrasound was performed. COMPARISON: None. FINDINGS: Uterus: 12.1 x 7.6 x 8.1 cm, with 20 mm endometrial stripe. There are no discrete structures, although the material in the fundus is slightly echogenic and the material in the lower uterine segment is nearly anechoic with internal echoes. There is no hypervascularity in the material in the endometrial canal (although the lack of vascularity does not exclude retained products of conception). scar is noted. Cervix is 2.7 cm long, with small amount of fluid. Right ovary: 3.9 x 1.8 x 2.6 cm. Normal vascular flow on Doppler. Left ovary: 2.9 x 2.5 x 1.5 cm. Normal vascular flow on Doppler. No free fluid. No adnexal masses. IMPRESSION: 1. Thickened (20 mm) endometrial canal containing mixed echogenic material, suspicious for retained products of conception.
== END 2019-08-17 22:29 | disposition home or self-care (01) ==
LOC: ER 17:39
DX: O72.1 Other immediate postpartum hemorrhage (principal)
CPT/HCPCS: 36415; 76830; 80053; 81001; 85025; 85610; 85730; 87086; 93976; 99284